=== PATIENT | male | born 1995 | race Hispanic/Latino ===

== ENCOUNTER 2020-01-24 20:58 | Emergency (ER) | payer SELFPAY ==
--- NOTE | ~2020-01-24 | XR_ITS ---
EXAMINATION: XR knee LT 3V DATE: 01/24/2020 21:23 INDICATION: Left knee injury and pain. TECHNIQUE: 3 views of left knee on 4 radiographs were obtained. COMPARISON: None. FINDINGS: Bone alignment is normal. No fracture. Joint spaces are well maintained. There is a moderat e-sized knee joint effusion. IMPRESSION: 1. Moderate-sized knee joint effusion. Reviewed, dictated and finalized at location A.
[2020-01-24 21:01] VITALS: BP 119/76; PULSE 93; RESP 16; TEMP 36.9; O2SAT 98
--- NOTE | 2020-01-24 21:11 | ED.LOWEXIN ---
HPI - Extremity Injury (Lower) General Chief Complaint: Extremity Injury, Lower Stated Complaint: lower ext pain Time Seen by Provider: 01/24/20 20:59 Source: patient and family Limitations: language barrier (His brother interprets) History of Present Illness HPI Narrative: 24-year-old male Playing soccer tonight Left knee gave out when he planted to make a cut Complains of pain and swelling Painful to bear weight and range of motion reduced He has a minor abrasion from earlier in the game complaint: knee injury Onset (ago): hour(s) Injury: Left: knee Type of Injury: other (Noncontact) Exacerbating factors: weight bearing and movement Review of Systems Constitutional: Constitutional: Reports no additional constitutional complaints Cardiovascular: Cardiovascular: Reports no additional cardiovascular complaints Respiratory: Respiratory: Reports no additional respiratory complaints Gastrointestinal: Gastrointestinal: Reports no additional gastrointestinal complaints Musculoskeletal: Musculoskeletal: Reports as per HPI Exam Const: General: healthy appearing, no acute distress, well developed and alert Nutritional Appearance: well nourished Orientation/consciousness: Other orientation findings (Alert) HENMT: Head: normal to inspection, normocephalic and atraumatic General nose exam: No nasal discharge present Face and sinus: face symmetric Mouth: Yes tongue normal Throat: other (No exudate, no erythema) Eyes: Conjunctivae: conjunctivae normal Sclera: sclerae normal EOM: EOMs intact bilaterally Neck: Neck: full ROM and supple Thyroid: thyroid normal Resp: Effort & Inspection: normal respiratory effort Auscultation: other (breath sounds equal) Cardio: Heart sounds: no gallops GI: GI Palp: No abdominal tenderness Auscultation: other (bowel sounds present) Back/Spine/Pelvis: Thoracic/Lumbar Spine: thoracic and lumbar spine normal to inspection Skin: General skin exam: normal color and no rashes or lesions noted Neuro: General: patient oriented x3 (alert), moves all extremities and no focal motor deficits Cranial nerves: Yes facial symmetry Speech: normal speech Motor exam (neuro): Motor abnormalities not present Extrem: General: full ROM Other: Left knee the swollen anteromedially tenderness along the medial joint line beginnings of a small effusion reduced range of motion in extension particularly and medial pain with valgus stress Course Vital Signs Vital signs: Vital Signs Temperature 36.9 C 01/24/20 21:01 Pulse Rate 93 01/24/20 21:01 Respiratory Rate 16 01/24/20 21:01 Blood Pressure 119/76 01/24/20 21:01 Pulse Oximetry 98 01/24/20 21:01 Temperature 36.9 C 01/24/20 21:01 Pulse Rate 84 01/24/20 23:13 Respiratory Rate 16 01/24/20 23:13 Blood Pressure 134/84 01/24/20 23:13 Pulse Oximetry 100 01/24/20 23:13 Discharge Plan Discharge Clinical Impression: Knee MCL sprain, Internal derangement of knee Patient Disposition: Home, Self-Care Condition: Stable Instructions: Antibiotic Form Follow-up/Referrals: ROOM PHYSICIAN,EMERGENCY [Primary Care Provider] - Aram Delvalle MD [Physician] - (next week ) Discharge Date/Time: 01/24/20 23:15
[2020-01-24] MEDS: KETOROLAC (*BKC) 60 MG/2 ML VIAL IM (21:22)
[2020-01-24 23:13] VITALS: BP 134/84; PULSE 84; RESP 16; O2SAT 100
== END 2020-01-24 23:15 | disposition home or self-care (01) ==
PROVIDERS: Emergency Provider Emergency Medicine
DX: S83.412A Sprain of medial collateral ligament of left knee, initial encounter (principal); X58.XXXA Exposure to other specified factors, initial encounter; Y93.66 Activity, soccer
CPT/HCPCS: 73562; 96372; 99283; J1885

== ENCOUNTER 2020-10-13 13:08 | Emergency (ER) | payer SELFPAY ==
--- NOTE | ~2020-10-13 | CT_ITS ---
EXAMINATION: CT abdomen pelvis w con DATE: 10/13/2020 15:20 INDICATION: Left lower quadrant pain TECHNIQUE: Computed tomography (CT) of the abdomen and pelvis was performed with 100 cc Omnipaque 350 intravenous contrast. The dose-length product was 387.36 mGy-cm. Automated exposure control and iter ative reconstruction technique were employed. COMPARISON: None. FINDINGS: Lung bases are unremarkable. Heart size normal. No significant pleural or pericardial effus ion. No significant vascular abnormality. No lymphadenopathy. Normal appendix. Nonobstructive bowel g as pattern. Bowel pattern is nonobstructive. Colonic diverticula without evidence for diverticulitis. No abnormal pelvic masses or fluid collections. No free air or free fluid. Fatty infiltration of the liver. The spleen, pancreas, adrenal glands and kidneys are unremarkable. N o ureteral stones or hydronephrosis. Bladder is unremarkable. Gallbladder is present. No acute osseou s abnormality. IMPRESSION: 1. No acute abdominal abnormality. Reviewed, dictated and finalized at location B.
--- NOTE | 2020-10-13 13:18 | ED.ABDPAIN ---
HPI - Abdominal Pain General Chief Complaint: Abdominal Pain Stated Complaint: Abd Pain Time Seen by Provider: 10/13/20 13:18 History of Present Illness HPI narrative: LLQ pain since yesterday. [place]. 11/14. Radiates throughout abdomen. Associated with nausea and feeling of needing to have a bowel movement. Also has very mild burning with urination. He has never had this before. He did not try anything for his symptoms. Related Data Allergies Allergy/AdvReac Type Severity Reaction Status Date / Time No Known Allergies Allergy Verified 10/13/20 13:43 Review of Systems Review of Systems: All systems reviewed & are unremarkable except as noted in HPI and below Constitutional: Constitutional: Denies chills, Denies fever(s) and Denies weakness Cardiovascular: Cardiovascular: Denies chest pain Respiratory: Respiratory: Denies dyspnea Gastrointestinal: Gastrointestinal: Reports as per HPI Genitourinary: Genitourinary: Reports as per HPI, Denies hematuria, Denies penile discharge and Denies urinary frequency Neurologic: Reports system reviewed and no additional complaints, except as documented Exam Const: General: healthy appearing, no acute distress and alert Orientation/consciousness: patient oriented x3 Neck: Neck: normal visual inspection Resp: Effort & Inspection: normal respiratory effort Auscultation: clear to auscultation bilaterally, no rales, no rhonchi and no wheezes Cardio: Jugular venous distension: no JVD Rate: regular rate Rhythm: regular rhythm Heart sounds: no murmurs GI: Inspection: non-distended GI Palp: Yes Soft to palpation, Yes Tenderness to palpation present (GI) (LLQ) and Yes Guarding due to palpation present (GI) Auscultation: normal bowel sounds Skin: General skin exam: normal color Neuro: General: patient oriented x3 and moves all extremities Speech: normal speech Psych: Appearance: well kempt Affect: normal affect Course Vital Signs Vital signs: Vital Signs Temperature 36.6 C 10/13/20 13:33 Pulse Rate 72 10/13/20 13:33 Respiratory Rate 18 10/13/20 13:33 Blood Pressure 128/76 10/13/20 13:33 Pulse Oximetry 100 10/13/20 13:33 Temperature 36.6 C 10/13/20 13:33 Pulse Rate 72 10/13/20 13:33 Respiratory Rate 18 10/13/20 13:33 Blood Pressure 128/76 10/13/20 13:33 Pulse Oximetry 100 10/13/20 13:33 MDM - Abdominal Pain MDM Narrative Medical decision making narrative: Labs and CT reassuring. Pain improved with treatment. Will discharge will dicyclomine for symptomatic treatment. Differential Diagnosis Differential diagnosis: Likely calculus of kidney, constipation, diverticulitis, gastroenteritis and pancreatitis Medical Records Attestation: I reviewed the patient's medical records. Lab Data Attestation: I reviewed the patient's lab results. Result diagrams: 10/13/20 14:12 10/13/20 14:12 Labs: Lab Results 10/13/20 10/13/20 10/13/20 Range/Units 14:12 14:12 14:18 WBC 4.7 (4.5-10.0) K/mm3 RBC 4.90 (4.6-6.20) M/mm3 Hgb 14.7 (14.0-18.0) g/dL Hct 42.8 (42.0-52.0) % MCV 87.3 (80-100) fl MCH 30.0 (26-34) pg MCHC 34.3 (32-36) g/dl RDW 12.6 (11.5-14.5) % Plt Count 236 (150-375) k/mm3 MPV 9.7 (7.4-10.4) fl Immature Gran % (Auto) 0.9 H (0-0.5) % Neut % (Auto) 47.1 (45.5-73.1) % Lymph % (Auto) 40.6 (18.3-44.2) % Chambers % (Auto) 8.5 (2.6-8.5) % Eos % (Auto) 2.3 (0-4.4) % Baso % (Auto) 0.6 (0.2-1.2) % Lymph # (Auto) 1.91 (0.9-3.2) K/mm3 Chambers # (Auto) 0.4 (0.1-0.6) K/mm3 Eos # (Auto) 0.1 (0-0.3) K/mm3 Baso # (Auto) 0.0 (0.0-0.1) K/mm3 Abs Immat Gran (auto) 0.04 H (0.00-0.031) K/mm3 Absolute Neuts (auto) 2.2 (1.3-6.7) K/mm3 Absolute Nucleated RBC 0.0 (0.0-0.012) K/mm3 Nucleated RBC % 0.0 (0.0-0.2) % Sodium 141 (137-145) mmol/L Potassium 3.5 (3.4-5.0) mmol/L Chloride 107 (98-107) mmol/L
[2020-10-13 13:33] VITALS: BP 128/76; PULSE 72; RESP 18; TEMP 36.6; O2SAT 100
[2020-10-13] MEDS: SODIUM CHLORIDE 0.9% IV 1,000 ML 999 ML IV CONT (13:49)
[2020-10-13] MEDS: fentaNYL CITRATE INJ (*CRX) 100 MCG/2 ML VIAL 50 MCG IV PUSH (13:49)
[2020-10-13] MEDS: ONDANSETRON INJ 4 MG/2 ML VIAL IV PUSH (13:49)
[2020-10-13 14:44] LABS: Add Urine Microscopic? YES; Appearance Urine Clear (Clear); Bilirubin Urine Negative (Negative); Blood Urine Negative (Negative); Color Urine Yellow (Yellow); Glucose Urine UA Negative (Negative); Ketones Urine Negative (Negative); Leukocyte Esterase Ur Negative LEU/UL (Negative); Mucus Urine Rare /lpf; Nitrate Urine Negative (Negative); Protein Urine 1+ mg/dL (Negative); RBC Urine 0-2 /hpf (0-2); Specific Grav Ur 1.028 (1.001-1.035); WBC Urine 0-3 /hpf
[2020-10-13 14:45] LABS: Basophils Percent Auto 0.6 % (0.2-1.2); Eosinophils Absolute Auto 0.1 K/mm3 (0-0.3); Eosinophils Percent Auto 2.3 % (0-4.4); Hematocrit 42.8 % (42.0-52.0); Hemoglobin 14.7 g/dL (14.0-18.0); Immature Granulocyte Absolute 0.04 K/mm3 (0.00-0.031); Immature Granulocyte Percent A 0.9 % (0-0.5); Lymphocytes Absolute Auto 1.91 K/mm3 (0.9-3.2); Lymphocytes Percent Auto 40.6 % (18.3-44.2); Mean Corpuscular HGB Conc 34.3 g/dl (32-36); Mean Corpuscular Volume 87.3 fl (80-100); Mean Platelet Volume 9.7 fl (7.4-10.4); Monocytes Absolute Auto 0.4 K/mm3 (0.1-0.6); Monocytes Percent Auto 8.5 % (2.6-8.5); Neutrophils Absolute Auto 2.2 K/mm3 (1.3-6.7); Neutrophils Percent Auto 47.1 % (45.5-73.1); Platelet Count Result 236 k/mm3 (150-375); Red Cell Distribution Width 12.6 % (11.5-14.5); White Blood Count 4.7 K/mm3 (4.5-10.0)
[2020-10-13 14:50] LABS: Alanine Aminotransferase 81 U/L (4-50); Albumin Level 4.1 g/dL (3.5-5.1); Alkaline Phosphatase 69 U/L (38-126); Anion Gap 10 mmol/L (8-16); Aspartate Amino Transferase 59 U/L (17-59); Bilirubin,Total 0.7 mg/dL (0.2-1.3); Blood Urea Nitrogen 11 mg/dL (9-20); Calcium 9.1 mg/dL (8.4-10.2); Carbon Dioxide 24 mmol/L (22-30); Chloride 107 mmol/L (98-107); Estimated CRCL calculation 125 ml/min; Estimated Glomerular Filt Rate > 60; Glucose 98 mg/dL (75-110); Lipase 83 U/L (23-300); Potassium 3.5 mmol/L (3.4-5.0); Sodium 141 mmol/L (137-145)
[2020-10-13] MEDS: DICYCLOMINE HCL INJ 20 MG/2 ML VIAL IM (15:57)
[2020-10-13] MEDS: PANTOPRAZOLE SODIUM IV 40 MG VIAL IV PUSH (15:57)
== END 2020-10-13 16:45 | disposition home or self-care (01) ==
PROVIDERS: Emergency Provider Emergency Medicine
DX: R10.32 Left lower quadrant pain (principal)
CPT/HCPCS: 36415; 74177; 80053; 81001; 83690; 85025; 96361; 96372; 96374; 96375; 99284; C9113; J0500; J2405; J3010; J7030; Q9967

== ENCOUNTER 2021-12-21 13:47 | Emergency (ER) | payer SELFPAY ==
[2021-12-21 14:03] VITALS: BP 130/89; PULSE 77; RESP 16; TEMP 36.3; O2SAT 99
--- NOTE | 2021-12-21 14:04 | ED.BACK ---
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 Patient is with pain across both shoulders. Reports the pain sometimes travels down has chest and across to his chest. midline tenderness. No loss or retention of bowel or bladder. No saddle anesthesia. Pain is reproducible with palpation over trapezius muscle. Patient has not taken anything for his pain. Related Data Allergies Allergy/AdvReac Type Severity Reaction Status Date / Time No Known Allergies Allergy Verified 12/21/21 14:07 Review of Systems Review of Systems: All systems reviewed & are unremarkable except as noted in HPI and below Constitutional: Constitutional: Reports no additional constitutional complaints, Denies chills and Denies fever(s) Eyes: Eyes: Reports no additional eye complaints ENT: Reports system reviewed and no additional complaints, except as documented Cardiovascular: Cardiovascular: Reports no additional cardiovascular complaints Respiratory: Respiratory: Reports no additional respiratory complaints Gastrointestinal: Gastrointestinal: Reports no additional gastrointestinal complaints Musculoskeletal: Musculoskeletal: Reports as per HPI and Reports back pain Integumentary/Breasts: Skin/Breast: Reports system reviewed and no additional complaints, except as docu Neurologic: Reports system reviewed and no additional complaints, except as documented Psychiatric: Psychiatric: Reports no additional psychiatric complaints Allergic/Immunologic: Allergic/Immunologic: Reports no additional allergic/immunologic complaints PMFSH Past Medical History Medical History (Updated 12/21/21 @ 19:45 by Magda Redmond APRN) No significant medical problems Surgical History Surgical History (Updated 12/21/21 @ 19:45 by Magda Redmond APRN) No pertinent past surgical history Social History Social History (Updated 12/21/21 @ 19:45 by Magda Redmond APRN) Living arrangements: with family Gender identity (if verbalized by the patient): Male Comments At the time of my signature, I reviewed and agree with the nursing past medical, surgical, social, and family history. There is no relevant family history pertinent to the patient complaint. Exam Const: General: healthy appearing, no acute distress and alert Nutritional Appearance: well nourished Orientation/consciousness: patient oriented x3 Limitations: no limitations HENMT: Head: normal to inspection Ears: external ears normal General nose exam: Normal external nose present Eyes: General: appearance normal, both eyes and all related structures Pupils: Equal, round and reactive pupils present Neck: Neck: normal visual inspection, no lymphadenopathy and no meningeal signs Chest: Chest palpation & inspection: normal inspection of the chest Resp: Effort & Inspection: normal respiratory effort and no use of accessory muscles Auscultation: clear to auscultation bilaterally, no crackles, no rales, no rhonchi and no wheezes Cardio: Rate: regular rate Rhythm: regular rhythm GI: GI Palp: Yes Soft to palpation and No Tenderness to palpation present (GI) Back/Spine/Pelvis: Back: no CVA tenderness Cervical Spine: normal cervical lordosis, cervical ROM normal, cervical muscular tenderness (lateral), No Cervical spine tenderness, No step off deformity and No cervical ROM abnormal Thoracic/Lumbar Spine: thoracic and lumbar spine normal to inspection, No thoracic spinal tenderness and No lumbar spinal tenderness Back/spine/pelvis image: 1. Reports pain with palpation 2. Reports pain with palpation and movement
== END 2021-12-21 14:30 | disposition home or self-care (01) ==
PROVIDERS: Emergency Provider Nurse Practitioner
DX: M54.6 Pain in thoracic spine (principal)
CPT/HCPCS: 99213; G0463

== ENCOUNTER 2022-06-25 11:56 | Emergency (ER) | payer SELFPAY ==
[2022-06-25 12:13] VITALS: BP 131/78; PULSE 75; RESP 12; TEMP 36.6; O2SAT 100
[2022-06-25 12:16] VITALS: BP 131/78; PULSE 75; RESP 12; TEMP 36.6; O2SAT 100
--- NOTE | 2022-06-25 12:36 | ED.EYEPROB ---
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 Patient states a week ago he got some insulation in his eye. Rinsed it out really well. Over the last couple days has developed a redness and irritation to the area. Related Data Patient tetanus UTD: Yes Allergies Allergy/AdvReac Type Severity Reaction Status Date / Time No Known Allergies Allergy Verified 06/25/22 12:15 Review of Systems Review of Systems: All systems reviewed & are unremarkable except as noted in HPI and below Constitutional: Constitutional: Reports no additional constitutional complaints Eyes: Eyes: Reports as per HPI, Denies change in vision and Denies photophobia ENT: Reports system reviewed and no additional complaints, except as documented Cardiovascular: Cardiovascular: Reports no additional cardiovascular complaints, Denies chest pain and Denies dyspnea Respiratory: Respiratory: Reports no additional respiratory complaints, Denies chest congestion, Denies cough and Denies dyspnea Gastrointestinal: Gastrointestinal: Reports no additional gastrointestinal complaints, Denies abdominal pain, Denies nausea and Denies vomiting Musculoskeletal: Musculoskeletal: Reports no additional musculoskeletal complaints Integumentary/Breasts: Skin/Breast: Reports system reviewed and no additional complaints, except as docu Neurologic: Reports system reviewed and no additional complaints, except as documented Psychiatric: Psychiatric: Reports no additional psychiatric complaints Allergic/Immunologic: Allergic/Immunologic: Reports no additional allergic/immunologic complaints [facility] Past Medical History Medical History No significant medical problems Surgical History Surgical History No pertinent past surgical history Social History Social History Living arrangements: with family Gender identity (if verbalized by the patient): Male Comments At the time of my signature, I reviewed and agree with the nursing past medical, surgical, social, and family history. There is no relevant family history pertinent to the patient complaint. Exam Const: General: cooperative, healthy appearing, comfortable, no acute distress, well developed, alert and well nourished Nutritional Appearance: well nourished Orientation/consciousness: patient oriented x3 Limitations: no limitations HENMT: Head: normal to inspection Ears: hearing grossly normal bilaterally and external ears normal Face/Nose/Sinus: Normal external nose present, Normal nares present, Normal nasal mucous membranes and turbinates present and normal facial exam Face and sinus: normal facial exam Mouth: Yes Normal oral and palatal mucosa present, Yes lip normal and Yes moist mucous membranes Throat: posterior oropharynx normal and uvula midline Eyes: General: appearance normal, both eyes and all related structures Alignment and Position: alignment normal Periorbital: periorbital findings normal Conjunctivae: conjunctivae normal Cornea: corneas abnormal on the right fluorescein used and abrasion linear (Lateral) and fluorescein used Pupils: Equal, round and reactive pupils present EOM: EOMs intact bilaterally Neck: Neck: normal visual inspection, full ROM, no lymphadenopathy and no meningeal signs Chest: Chest palpation & inspection: normal inspection of the chest Resp: Effort & Inspection: normal respiratory effort and able to speak in complete sentences Auscultation: clear to auscultation bilaterally, n
--- NOTE | 2022-06-25 13:07 | PC.NURSE ---
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
== END 2022-06-25 13:17 | disposition home or self-care (01) ==
PROVIDERS: Emergency Provider Nurse Practitioner
DX: S05.01XA Injury of conjunctiva and corneal abrasion without foreign body, right eye, initial encounter (principal); X58.XXXA Exposure to other specified factors, initial encounter
CPT/HCPCS: 99213; A9270; G0463

== ENCOUNTER 2023-08-23 14:36 | Emergency (ER) | payer SELFPAY ==
[2023-08-23 14:56] VITALS: BP 126/89; PULSE 80; RESP 18; TEMP 36.8; O2SAT 98
--- NOTE | 2023-08-23 15:01 | ED.ABDPAIN ---
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 Reports diarrhea has been 4 times per day with some reported mucus. Denies vomiting or fever. States he has had some episodes similar to this in the past, but has never been evaluated for them. Currently rates pain 6/10, with intermittent increases in pain up to 9/10. He has tried no [id number] treatment prior to arrival. Related Data Home Medications Medication Instructions Recorded Confirmed No Home Medications 08/23/23 08/23/23 Allergies Allergy/AdvReac Type Severity Reaction Status Date / Time No Known Allergies Allergy Verified 08/23/23 14:41 Review of Systems Review of Systems: CONSTITUTIONAL: Denies body aches, fever, chills, or sweats. EYES: Denies visual changes, redness, or discharge. ENT: Denies rhinorrhea, congestion, sore throat, or otalgia. CARDIOVASCULAR: Denies chest pain, palpitations, or edema. RESPIRATORY: Denies cough or dyspnea. GASTROINTESTINAL: Denies vomiting. + abdominal pain, nausea, diarrhea GENITOURINARY: Denies dysuria or hematuria. SKIN: Denies rash, itching, or wounds. MUSCULOSKELETAL: Denies back pain, joint pain, or myalgia. NEUROLOGIC: Denies headache, numbness, tingling, or weakness. PSYCH: Denies depression or anxiety. [facility] Past Medical History Medical History No significant medical problems Surgical History Surgical History No pertinent past surgical history Social History Social History Living arrangements: with family Gender identity (if verbalized by the patient): Male Comments At time of signature, I have reviewed and agree with nursing past medical, surgical, social and family history unless otherwise noted. Please see nursing chart for further information. There is no relevant family history pertinent to the presenting complaint Exam Narrative: GENERAL: Well-appearing, well-nourished, and in no acute distress. HEAD: Normocephalic, atraumatic. EYES: EOMI. No redness or drainage. Conjunctivae normal. ENT: Mucous membranes pink and moist. NECK: Normal AROM. CHEST: No respiratory distress. Clear to auscultation. HEART: Regular rate and rhythm. No murmur appreciated. Normal peripheral pulses. ABDOMEN: Soft, nondistended, normal active bowel sounds. Tender diffusely, but worst tenderness over left lower quadrant. No rebound. Pain increases while lying supine. MUSCULOSKELETAL: No bony tenderness. EXTREMITIES: Normal range of motion. No edema. SKIN: Warm, dry, no rash. Capillary refill normal. Normal skin turgor. NEURO: No focal deficits. Alert and oriented x3. Gait steady. PSYCH: Normal affect. No signs of depression or anxiety. Course Course Level of Care: Express Care Visit Vital Signs Vital signs: Vital Signs Temperature 98.2 F 08/23/23 14:56 Pulse Rate 80 08/23/23 14:56 Respiratory Rate 18 08/23/23 14:56 Blood Pressure 126/89 08/23/23 14:56 Pulse Oximetry 98 08/23/23 14:56 Oxygen Delivery Room Air 08/23/23 14:56 Temperature 98.2 F 08/23/23 14:56 Pulse Rate 80 08/23/23 14:56 Respiratory Rate 18 08/23/23 14:56 Blood Pressure 126/89 08/23/23 14:56 Pulse Oximetry 98 08/23/23 14:56 Oxygen Delivery Room Air 08/23/23 14:56 Reviewed Transfer Transfered to: [place] Transportation: Other (private vehicle) Transfer rationale: abdominal pain Accepting physician: Raymon MDM - Abdominal Pain MDM Narrative Medical decision m
== END 2023-08-23 15:10 | disposition short-term general hospital (02) ==
PROVIDERS: Emergency Provider Nurse Practitioner
DX: H92.02 Otalgia, left ear (principal)
CPT/HCPCS: 99212; G0463

== ENCOUNTER 2023-08-23 15:26 | Emergency (ER) | payer SELFPAY ==
--- NOTE | ~2023-08-23 | CT_ITS ---
EXAMINATION: CT abdomen pelvis w con DATE: 08/23/2023 16:41 INDICATION: Left lower quadrant abdominal pain radiating to the back. Diarrhea. TECHNIQUE: Computed tomography (CT) of the abdomen and pelvis was performed with 100 mL Omnipaque 350 intravenous contrast. Automated exposure control and iterative reconstruction technique were employe d. The dose-length product was 454.82 mGy-cm. COMPARISON: None. FINDINGS: The visualized portions of the lung bases demonstrate minimal atelectasis. No pleural effus ion. The heart size is normal. No pericardial effusion. There is diffuse hepatic steatosis. The gallb ladder, spleen, pancreas, adrenal glands, and kidneys are normal. There are no dilated loops of bowel . The appendix is normal. There are no pathologically enlarged lymph nodes. There is no free intraper itoneal fluid. There is mild thoracic and lumbar spondylosis. There are chronic bilateral L5 pars def ects with 3 mm anterolisthesis of L5 on S1. IMPRESSION: 1. Diffuse hepatic steatosis. Reviewed, dictated and finalized at location E.
--- NOTE | 2023-08-23 15:41 | ED.ABDPAIN ---
HPI - Abdominal Pain General Chief Complaint: Abdominal Pain <Isidoro Romero APRN - Last Filed: 08/23/23 15:44> Stated Complaint: LLQ pain <Isidoro Romero APRN - Last Filed: 08/23/23 15:44> Time Seen by Provider: 08/23/23 15:40 <Isidoro Romero APRN - Last Filed: 08/23/23 15:44> Focused HPI: Bharath is a 28-year-old male patient presenting to the emergency room today with complaints of left lower quadrant abdominal pain that started 3 days ago. Is reporting associated nausea, vomiting, and diarrhea. He states the pain is worse when he eats. After he is sleeping he feels better. Does report some burning with urination and the pain radiates into his back. Last bowel movement was about an hour and a half ago and it was diarrhea. He does report that he is passing some blood in his stool. He denies any fever or chills. General: Well-developed, well nourished, in no apparent distress. Head: Normocephalic, atraumatic. Cardio: Regular rate and rhythm, s1 and s2 normal, no murmur appreciated. Resp: Clear to auscultation bilaterally, no rhonchi, rales, wheezing or rubs. Abdomen: Soft, pliable, bowel sounds present in all quadrants, tender to palpation over the left lower quadrant, no organomegly, no CVAT tenderness. Patient screened in triage and initial orders placed. Additional care and disposition to be based upon diagnostic testing and treatment. 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 <Demian Morales MD - Last Filed: 08/25/23 21:08> Related Data Allergies/Adverse Reactions: Allergies Allergy/AdvReac Type Severity Reaction Status Date / Time No Known Allergies Allergy Verified 08/23/23 15:50 <Isidoro Romero APRN - Last Filed: 08/23/23 15:44> Review of Systems Review of Systems: All systems reviewed & are unremarkable except as noted in HPI and below <Demian Morales MD - Last Filed: 08/25/23 21:08> PMFSH Past Medical History Medical History: Medical History No significant medical problems <Isidoro Romero APRN - Last Filed: 08/23/23 15:44> Surgical History Surgical History: Surgical History No pertinent past surgical history <Isidoro Romero APRN - Last Filed: 08/23/23 15:44> Social History Social History: Social History Living arrangements: with family Gender identity (if verbalized by the patient): Male <Isidoro Romero APRN - Last Filed: 08/23/23 15:44> Comments At the time of my signature, I reviewed and agree with the nursing past medical, surgical, social, and family history. There is no relevant family history pertinent to the patient complaint. <Isidoro Romero APRN - Last Filed: 08/23/23 15:44> Exam Narrative: APPEARANCE: Well appearing, no pain, no distress, well-nourished. HEAD: normocephalic, atraumatic. EYES: PERRLA/EOMI, conjunctivae clear. NOSE: Normal no drainage EARS:TMS clear with good light reflex. THROAT: Pharynx clear, no exudate. NECK: Supple. No adenopathy, no masses. RESPIRATORY: Airway patent, respirations nonlabored. Clear to auscultation bilaterally, no rales, rhonchi, wheezing. CARDIOVASCULAR: Regular rate and rhythm without murmurs rubs or gallops. ABDOMINAL: Left lower quadrant tenderness to palpation MUSCULOSKELETAL: Moves all extr
[2023-08-23 15:46] VITALS: BP 131/82; PULSE 80; RESP 16; TEMP 36.6; O2SAT 98
[2023-08-23 16:08] LABS: Appearance Urine Clear (Clear); Basophils Percent Auto 0.5 % (0.2-1.2); Bilirubin Urine Negative (Negative); Blood Urine Negative (Negative); Color Urine Yellow (Yellow); Eosinophils Absolute Auto 0.1 K/mm3 (0-0.3); Eosinophils Percent Auto 1.5 % (0-4.4); Glucose Urine UA Negative (Negative); Hemoglobin 16.7 g/dL (14.0-18.0); Immature Granulocyte Absolute 0.05 K/mm3 (0.00-0.031); Immature Granulocyte Percent A 0.8 % (0-0.5); Ketones Urine Negative (Negative); Leukocyte Esterase Ur Negative LEU/UL (Negative); Lymphocytes Absolute Auto 2.67 K/mm3 (0.9-3.2); Lymphocytes Percent Auto 40.3 % (18.3-44.2); Mean Corpuscular HGB Conc 34.8 g/dl (32-36); Mean Corpuscular Hemoglobin 29.4 pg (26-34); Mean Corpuscular Volume 84.5 fl (80-100); Mean Platelet Volume 9.3 fl (7.4-10.4); Monocytes Absolute Auto 0.5 K/mm3 (0.1-0.6); Monocytes Percent Auto 7.7 % (2.6-8.5); Neutrophils Absolute Auto 3.3 K/mm3 (1.3-6.7); Neutrophils Percent Auto 49.2 % (45.5-73.1); Nitrate Urine Negative (Negative); Platelet Count Result 266 k/mm3 (150-375); Protein Urine Negative (Negative); Red Blood Count 5.68 M/mm3 (4.6-6.20); Red Cell Distribution Width 12.9 % (11.5-14.5); Specific Grav Ur 1.015 (1.001-1.035); White Blood Count 6.6 K/mm3 (4.5-10.0); pH Urine 6.5 (5.0-9.0)
[2023-08-23 16:19] LABS: Alanine Aminotransferase 183 U/L (6-50); Albumin Level 4.9 g/dL (3.5-5.1); Alkaline Phosphatase 74 U/L (38-126); Anion Gap 11 mmol/L (4-12); Aspartate Amino Transferase 88 U/L (17-59); Bilirubin,Total 0.7 mg/dL (0.2-1.3); Blood Urea Nitrogen 10 mg/dL (9-20); Calcium 9.9 mg/dL (8.4-10.2); Carbon Dioxide 23 mmol/L (22-30); Chloride 106 mmol/L (98-107); Estimated Glomerular Filt Rate > 60; Glucose 116 mg/dL (65-110); Lipase 99 U/L (23-300); Potassium 4.2 mmol/L (3.4-5.0); Sodium 140 mmol/L (137-145)
[2023-08-23] MEDS: SODIUM CHLORIDE 0.9% IV 1,000 ML 999 ML IV CONT (16:24)
[2023-08-23] MEDS: ONDANSETRON INJ 4 MG/2 ML VIAL IV PUSH (16:24)
[2023-08-23] MEDS: HYDROmorphone HCL INJ (*CRX) 1 MG/ML SYR IV PUSH (16:24)
--- NOTE | 2023-08-23 16:27 | PC.NURSE ---
Pt to CT scan via stretcher at this time, fluids infusing.
[2023-08-23 16:31] LABS: Add Urine Microscopic? NO
[2023-08-23 17:30] VITALS: BP 122/86; PULSE 65; RESP 20; O2SAT 97
== END 2023-08-23 17:36 | disposition home or self-care (01) ==
LOC: ANHED 17:30
PROVIDERS: Nurse Practitioner Family; Emergency Provider Emergency Medicine
DX: R10.32 Left lower quadrant pain (principal); R11.2 Nausea with vomiting, unspecified; R19.7 Diarrhea, unspecified; K76.0 Fatty (change of) liver, not elsewhere classified
CPT/HCPCS: 36415; 74177; 80053; 81003; 83690; 85025; 96361; 96374; 96375; 99284; J1170; J2405; J7030; Q9967

== ENCOUNTER 2024-11-13 14:18 | Emergency (ER) | payer SELFPAY ==
[2024-11-13 14:29] VITALS: BP 138/85; PULSE 78; RESP 20; TEMP 36.2; O2SAT 99
--- NOTE | 2024-11-13 15:10 | ED.HA ---
HPI - Headache General Chief Complaint: Headache Stated Complaint: Headache Time Seen by Provider: 11/13/24 14:54 Source: patient and interpreter deaf Mode of arrival: ambulatory Limitations: no limitations History of Present Illness HPI Narrative: Patient presents today complaining a severe frontal headache radiating to the crown since last night with 1 episode of vomiting a persistent nausea, dizziness, photophobia, intermittent blurred vision in bilateral eyes, tingling to the bilateral lower arms. Reports he did have some tingling to the right side of his mouth last night but this has since resolved. He reports he has been short of breath intermittently for the past week as well. Rates his pain 10/10, and took some Tylenol 2 hours prior to arrival without relief. Confirms this is the worst headache of his life. States the headache started slowly and progressively got worse. Denies chest pain, abdominal pain, recent illness. Related Data Home Medications ?Medication ?Instructions ?Recorded ?Confirmed ?Last Taken ?Type No Home Medications 11/13/24 11/13/24 Unknown History Allergies Allergy/AdvReac Type Severity Reaction Status Date / Time No Known Allergies Allergy Verified 11/13/24 15:08 [facility] Past Medical History Medical History No significant medical problems Surgical History Surgical History No pertinent past surgical history Social History Social History Living arrangements: with family Gender identity (if verbalized by the patient): Male Comments At time of signature, I have reviewed and agree with nursing past medical, surgical, social and family history unless otherwise noted. Please see nursing chart for further information. There is no relevant family history pertinent to the presenting complaint Exam Narrative: GENERAL: Well-appearing, well-nourished, moderate pain distress, grabbing his head HEAD: Normocephalic, atraumatic. EYES: EOMI. PERRL. No nystagmus. No redness or drainage. Conjunctivae normal. ENT: Mucous membranes pink and moist. Nares clear. No rhinorrhea. TMs normal bilaterally. Throat normal. Uvula midline. NECK: Normal AROM. Supple. No lymphadenopathy. CHEST: No respiratory distress. Clear to auscultation. HEART: Regular rate and rhythm. No murmur appreciated. Normal peripheral pulses. EXTREMITIES: Normal range of motion. No edema. SKIN: Warm, dry, no rash. Capillary refill normal. Normal skin turgor. NEURO: No focal deficits. Alert and oriented x3. Gait steady. Hand vice president for philanthropy equal and strong. No drift. Bilateral lower extremities with 5/5 strength. PSYCH: Normal affect. Course Course Level of Care: Express Care Visit Vital Signs Vital signs: Vital Signs Temperature 97.1 F L 11/13/24 14:29 Pulse Rate 78 11/13/24 14:29 Respiratory Rate 20 11/13/24 14:29 Blood Pressure 138/85 11/13/24 14:29 Pulse Oximetry 99 11/13/24 14:29 Oxygen Delivery Room Air 11/13/24 14:29 Temperature 97.1 F L 11/13/24 14:29 Pulse Rate 78 11/13/24 14:29 Respiratory Rate 20 11/13/24 14:29 Blood Pressure 138/85 11/13/24 14:29 Pulse Oximetry 99 11/13/24 14:29 Oxygen Delivery Room Air 11/13/24 14:29 Reviewed Transfer Transfered to: [facility] Transportation: Other (Private vehicle) Transfer rationale: Headache, dizziness, vision changes Accepting physician: Raymon, report given to Sally Marin [facility] - Headache [facility] Narrative Medical decision making narrative: 28-year-old male patient with frontal headache radiating to the crown that he reports is the worst headache of his life. Associated symptoms include nausea, vomiting, dizziness, blurred vision, tingling in the arms. Took Tylenol without relief. Vital signs stable. Neurologically intact. Patient will be transferred to the ER at [facility] for further evaluation of his symptoms. Declines ambulance transfer. Differential Diagnosis Differential diagnosis: Likely migraine and other (Intracranial hemorrhage, cluster headache) Critical Care Time Critical Care Time Critical Care Time: No Discharge Plan Discharge Clinical Impression: Severe headache, Dizziness Patient Disposition: Acute Care Hospital Condition: Stable Patient Language: Persian Prescriptions: No Action No Home Medications Follow-up/Referrals: PHYSICIAN,BAG FILLER MACHINE OPERATOR [Primary Care Provider] - Time of Disposition: 15:17
== END 2024-11-13 15:16 | disposition short-term general hospital (02) ==
PROVIDERS: Emergency Provider Nurse Practitioner
DX: R51.9 Headache, unspecified (principal); R42 Dizziness and giddiness
CPT/HCPCS: 99203; G0463

== ENCOUNTER 2024-11-13 15:28 | Emergency (ER) | payer SELFPAY ==
--- NOTE | ~2024-11-13 | CT_ITS ---
CT brain wo con Ordering provider: Demian Morales MD History: 29 years Male with . headache . Comparison: None. Technique: CT of the head without contrast. Radiation reduction technique utilized.The dose-length pr oduct was 681 mGy-cm. FINDINGS: BRAIN PARENCHYMA AND CSF SPACES: No midline shift, mass effect or hemorrhage. The brain parenchyma a nd CSF spaces are otherwise normal. VISUALIZED PARANASAL SINUSES: Well aerated. MASTOIDS: Well aerated. BONES: The bones appear intact. SOFT TISSUES: Visualized nasopharynx is normal. Superficial soft tissues are normal. IMPRESSION: No acute intracranial findings. Reviewed, dictated and finalized at location A.
[2024-11-13 15:29] VITALS: BP 136/100; PULSE 88; RESP 16; TEMP 36.8; O2SAT 98
--- OUTSIDE RECORDS SUMMARY | 2024-11-13 15:29 | XMS_ITS | Clinical Summary ---
Author Organization [facility] [employer] Address [address] [place] [address] Care Team Providers Care Care Coordinator Name Role Phone Unavailable Primary Care Provider Unavailabl e Source Comments [facility] [employer],non-owned Affiliates and Associated Physician Practices is amultiple site organization consisting of ambulatory clinics and hospital sitesin [place], [place], [place] and [place]. This disclosure is being madepursuant to the Care Everywhere program and may not contain all information available regarding this patient. Last updated 18.[facility] [employer] Allergies No known active allergies Active Problems Problem Noted Date Diagnosed Date Scalp laceration 02/18/2022 Immunizations Immunization Administration Dates Next Due TDAP (7yrs+) 02/18/2022 Social History Tobacco Use Types Packs/Day Years Used Date Smoking Tobacco: Every Day Cigarettes Smokeless Tobacco: Never Alcohol Use Standard Drinks/Week Comments Yes 0 (1 standard drink = 0.6 oz pur e alcohol) occ Sex and Gender Information Value Date Recorded Sex Assigned at Not on file Legal Sex Male 6:08 PM CDT Gender Identity Not on file Sexual Orientation Not on file Last Filed Vital Signs Vital Sign Reading Time Taken Comments Blood Pressure 130/81 02/17/2022 10:17 PM CDT Pulse 75 02/17/2022 10:17 PM CDT Temperature 36.5 C (97.7 F) 02/17/2022 6:09 PM CDT Respiratory Rate 16 02/17/2022 10:17 PM CDT Oxygen Saturation 100% 02/17/2022 10:17 PM CDT Inhaled Oxygen Concentration - - Weight 68 kg (150 lb) 02/17/2022 6:09 PM CDT Height 172.7 cm (5' 8) 02/17/2022 6:09 PM CDT Body Mass Index 22.81 02/17/2022 6:09 PM CDT Plan of Treatment Health Maintenance Due Date Last Done Comments HIV SCREENING 2010 HEPATITIS C SCREENING 03/15/2013 HEPATITIS B VACCINE (1 of 3 - 19+ 3-dose series) 2014 PNEUMOCOCCAL VACCINE (1 of 2 - PCV) 2014 COVID-19 VACCINE (1 - 2023-2 5 season) 2024 DEPRESSION SCREENING 05/08/2024 INFLUENZA VACCINE (#1) 2025 DTAP/TDAP/TD VACCINES (2 - T d or Tdap) 02/19/2032 02/18/2022 ZOSTER VACCINE (1 of 2) 2045 HIB VACCINE Aged Out No longer eligi ble based on patient's age to complete this topic HPV VACCINE Aged Out No longer eligi ble based on patient's age to complete this topic MENINGOCOCCAL (Group B) VACC INE SHARED DECISION-MAKING Aged Out No longer eligibl e based on patient's age to complete this topic MENINGOCOCCAL GROUPS A/C/Y/W VACCINE Aged Out No longer eligible b ased on patient's age to complete this topic Insurance [employer]
[2024-11-13 15:39] VITALS: BP 150/85; PULSE 68; RESP 21; O2SAT 99
--- NOTE | 2024-11-13 16:55 | ED.GENADULT ---
HPI - General Adult General Chief complaint: Headache Stated complaint: UP, vomiting, blurred vision, dizzy Time Seen by Provider: 11/13/24 16:15 History of Present Illness HPI narrative: 29-year-old male presents to the emergency department for evaluation for headache. Patient reports he does have intermittent headaches but this headache is lasting longer than previous headaches. Patient describes a frontal headache that does radiate to the top of his skull. Patient also does complaint of left-sided neck pain. Patient did take Tylenol for pain control but this did not help. Related Data Home Medications ?Medication ?Instructions ?Recorded ?Confirmed ?Last Taken ?Type No Home Medications 11/13/24 11/13/24 Unknown History Allergies Allergy/AdvReac Type Severity Reaction Status Date / Time No Known Allergies Allergy Verified 11/13/24 15:08 Review of Systems Review of Systems: All systems reviewed & are unremarkable except as noted in HPI and below PMFSH Past Medical History Medical History No significant medical problems Surgical History Surgical History No pertinent past surgical history Social History Social History Living arrangements: with family Gender identity (if verbalized by the patient): Male Exam Narrative: APPEARANCE: Well appearing, no pain, no distress, well-nourished. HEAD: normocephalic, atraumatic. EYES: PERRLA/EOMI, conjunctivae clear. NOSE: Normal no drainage EARS:TMS clear with good light reflex. THROAT: Pharynx clear, no exudate. NECK: Supple. No adenopathy, no masses. RESPIRATORY: Airway patent, respirations nonlabored. Clear to auscultation bilaterally, no rales, rhonchi, wheezing. CARDIOVASCULAR: Regular rate and rhythm without murmurs rubs or gallops. ABDOMINAL: Soft, nontender, nondistended, normal bowel sounds MUSCULOSKELETAL: Moves all extremities. Strength/ROM intact, No edema, No calf tenderness. NEURO: Alert. Cranial nerves II through XII intact. Grossly intact SKIN: Warm, dry. Normal Color Course Vital Signs Vital signs: Vital Signs Temperature 98.2 F 11/13/24 15:29 Pulse Rate 88 11/13/24 15:29 Respiratory Rate 16 11/13/24 15:29 Blood Pressure 136/100 H 11/13/24 15:29 Pulse Oximetry 98 11/13/24 15:29 Temperature 98.1 F 11/13/24 19:51 Pulse Rate 73 11/13/24 19:51 Respiratory Rate 19 11/13/24 19:51 Blood Pressure 126/89 11/13/24 19:51 Pulse Oximetry 97 11/13/24 19:51 Medical Decision Making MDM Narrative Medical decision making narrative: 29-year-old male presenting to the emergency department for evaluation for headache. Patient does have tenderness of the left trapezius into the cervical muscles. Patient had a negative head CT. Patient did feel improved with a L of lactated Ringer's, IV Compazine, IV Benadryl and IV Toradol. On re-evaluation patient states his headache is resolved. Patient and family are updated on the results of the workup and potential etiology for his headache and pain. All questions concerns were addressed patient was well-appearing at time of discharge. Differential Diagnosis Differential Diagnosis: Subdural hematoma, subarachnoid hemorrhage, migraine, headache, sinus infection Vital Signs Vital Signs: Vital Signs Temperature 98.2 F 11/13/24 15:29 Pulse Rate 88 11/13/24 15:29 Respiratory Rate 16 11/13/24 15:29 Blood Pressure 136/100 H 11/13/24 15:29 Pulse Oximetry 98 11/13/24 15:29 Temperature 98.1 F 11/13/24 19:51 Pulse Rate 73 11/13/24 19:51 Respiratory Rate 19 11/13/24 19:51 Blood Pressure 126/89 11/13/24 19:51 Pulse Oximetry 97 11/13/24 19:51 Discharge Plan Discharge Clinical Impression: Headache, Strain of cervical portion of left trapezius muscle Patient Disposition: Home Condition: Stable Instructions: Antibiotic Form, Acute Headache (ED) Additional Instructions: Tylenol and ibuprofen for pain control. Have close follow-up with your primary care physician. Patient Language: Macanese Prescriptions: No Action No Home Medications Follow-up/Referrals: PHYSICIAN,OFFICE ASSISTANT [Primary Care Provider] -
[2024-11-13] MEDS: CYCLOBENZAPRINE HCL 10 MG TABLET PO (16:57)
[2024-11-13] MEDS: LACTATED RINGERS 1,000 ML 999 ML IV CONT (16:57)
[2024-11-13] MEDS: PROCHLORPERAZINE EDISYLATE 10 MG/2 ML VIAL IV PUSH (17:02)
[2024-11-13 17:06] VITALS: BP 131/83; PULSE 70; RESP 20; O2SAT 97
--- OUTSIDE RECORDS SUMMARY | 2024-11-13 17:24 | XMS_ITS | Clinical Summary ---
Author Organization [facility] Address [address] [place] [address] Care Team Providers Care Tax Auditor Name Role Phone Unavailable Primary Care Provider Unavailabl e Source Comments [facility],non-owned Affiliates and Associated Physician Practices is amultiple site organization consisting of ambulatory clinics and hospital sitesin [place], [place], [place] and [place]. This disclosure is being madepursuant to the Care Everywhere program and may not contain all information available regarding this patient. Last updated 18.[facility] Allergies No known active allergies Active Problems [...] topic Insurance [employer]
[2024-11-13] MEDS: KETOROLAC 30 MG/ML VIAL (*BKC) IV PUSH (18:08)
[2024-11-13 18:10] VITALS: BP 120/65; PULSE 56; RESP 18; O2SAT 97
[2024-11-13 19:51] VITALS: BP 126/89; PULSE 73; RESP 19; TEMP 36.7; O2SAT 97
== END 2024-11-13 19:51 | disposition home or self-care (01) ==
PROVIDERS: Emergency Provider Emergency Medicine
DX: R51.9 Headache, unspecified (principal); S29.012A Strain of muscle and tendon of back wall of thorax, initial encounter; X58.XXXA Exposure to other specified factors, initial encounter
CPT/HCPCS: 70450; 96361; 96374; 96375; 99284; A9270; J0780; J1200; J1885; J7120